=== PATIENT | male | born 1980 | race African-American/Black ===

== ENCOUNTER 2025-01-30 18:04 | Emergency (ER) | payer BC, MEDICAID ==
[~2025-01-30] VITALS: Ht 193 cm; Wt 113.4 kg
[~2025-01-30 18:04] MED LIST: TELM40TA2 PO
[2025-01-30 18:21] VITALS: TEMP 98.1
[2025-01-30] MEDS: IV NS 0.9% 1,000 ML BAG IV ONE (18:50)
[2025-01-30 18:56] LABS: PLATELET COUNT (AUTO) 327 K/uL (150-450); RED BLOOD CELL COUNT(AUTO) 4.19 MIL/uL (4.5-6.0); RED CELL DISTRIBUTION WIDTH 13.5 % (11.5-15.0); WHITE BLOOD COUNT (AUTO) 8.3 K/uL (4.3-11.0)
[2025-01-30 19:07] LABS: CALCIUM, SERUM 9.0 mg/dL (8.5-10.1); CREATININE 1.7 mg/dL (0.6-1.3); SODIUM SERUM 128.0 mmol/L (136-145); UREA NITROGEN, BLOOD 46.0 mg/dL (7-18)
[2025-01-30] MEDS ORDERED: METF-440 PO (19:40)
[2025-01-30 19:43] LABS: SITE, VBG VBG - N/A; VBG BASE EXCESS 0.2 mmol/L (-2.0-3.0); VBG HCO3 26.8 mmol/L (22.0-29.0); VBG MetHb 0.2 % (0.5-1.5); VBG OXYGEN SATURATION 88.9 % (60.0-85.0); VBG PCO2 52.0 mmHg (38.0-54.0); VBG PH 7.330 (7.320-7.430); VBG PO2 59.6 mmHg (23.0-48.0); VBG TOTAL HEMOGLOBIN 12.6 G/dL (13.5-17.5)
[2025-01-30] MEDS: INSULIN REGULAR, HUMAN 100 UNIT/ML 10 ML VIAL SQ ONE (19:59)
[2025-01-30 20:07] VITALS: BP 135/87; O2SAT 97
== END 2025-01-30 20:00 | disposition home or self-care (01) ==
LOC: ER 18:12
DX: E11.9 Type 2 diabetes mellitus without complications (principal); R63.2 Polyphagia; F19.10 Other psychoactive substance abuse, uncomplicated; Z79.4 Long term (current) use of insulin; Z79.84 Long term (current) use of oral hypoglycemic drugs; Z79.899 Other long term (current) drug therapy; Z88.2 Allergy status to sulfonamides
CPT/HCPCS: 99283; 96360; 82803; 85025; 80048; 82010; 36415; 96372; J1815; J7030

== ENCOUNTER 2025-01-31 23:09 | Emergency (ER) | payer BC, MEDICAID ==
[~2025-01-31 23:09] MED LIST changes: +METF-440 PO
== END 2025-02-01 02:10 | disposition left against medical advice (07) ==
LOC: ER 23:17
DX: Z00.00 Encounter for general adult medical examination without abnormal findings (principal); Z53.21 Procedure and treatment not carried out due to patient leaving prior to being seen by health care provider